=== PATIENT | male | born 1940 | race Caucasian/White ===

== ENCOUNTER 2018-08-18 02:27 | Emergency (ER) | payer MEDICAID, MEDICARE ==
[2018-08-18] MEDS ORDERED: Sodium Chloride 0.9% 10 ML Syringe FLUSH PRN (02:29)
[2018-08-18] MEDS ORDERED: Ondansetron 4 MG/2 ML SDV IVPUSH ONE (02:41)
[2018-08-18] MEDS ORDERED: Morphine 4 MG/ML Syringe IVPUSH ONE (02:41)
--- NOTE | 2018-08-18 02:41 | EDM.PDOC ---
ED HPI GENERAL MEDICAL PROBLEM - General Chief Complaint: Chest Pain Stated Complaint: chest pain Time Seen by Provider: 08/18/18 02:27 Source of Information: Reports: Patient, EMS, [facility] Records History Limitations: Reports: Other (dementia) - History of Present Illness INITIAL COMMENTS - FREE TEXT/NARRATIVE: 78 YO WM presents to ER from [place] with severe epigastric pain which began at approximately 10pm last night. Pt was given nitro for pain with no relief. Pt reports pain is worse with movement. Pt reports feeling more comfortable from laying on his right side and has more pain sitting up or lying on his back. Pt denies nausea/vomiting, no shortness of breath, no diaphoresis or dizziness. Pt reports having a cardiac cath many years ago without evidence of CAD. Pt denies any back pain or radiating chest pain. Onset Date: 08/17/18 Onset Time: 22:00 Location: Reports: Chest Quality: Reports: Ache Severity: Mild Improves with: Reports: None Worsens with: Reports: None Associated Symptoms: Reports: Chest Pain Treatments [facility]: Reports: Nitroglycerin - Related Data Allergies Allergy/AdvReac Type Severity Reaction Status Date / Time adenosine Allergy Cannot Verified 05/30/18 13:12 Remember clindamycin Allergy Cannot Verified 05/30/18 13:12 Remember gluten Allergy Stomach Verified 04/16/18 08:53 Upset lisinopril Allergy Cough Verified 05/30/18 13:12 Home Meds: Home Meds Isosorbide Mononitrate [Imdur] 30 mg PO DAILY 08/19/15 [History] Nitroglycerin [Nitrostat] 0.4 mg PO ASDIRECTED PRN 08/19/15 [History] Carvedilol 6.25 mg PO BIDMEALS 04/16/18 [History] Donepezil [Aricept] 5 mg PO BEDTIME 04/16/18 [History] Escitalopram [Lexapro] 10 mg PO DAILY 04/16/18 [History] Esomeprazole [NexIUM] 20 mg PO ACBREAKFAST 04/16/18 [History] Hydrocodone/Acetaminophen [Hydrocodon-Acetaminophen 5-325] 5 - 325 mg PO Q4HR PRN 04/16/18 [History] Memantine HCl [Namenda] 5 mg PO BID 04/16/18 [History] Polyethylene Glycol 3350 [Miralax] 17 gr PO BEDTIME 04/16/18 [History] Tamsulosin [Flomax] 0.4 mg PO DAILY 04/16/18 [History] amLODIPine Besylate [Amlodipine Besylate] 5 mg PO DAILY 04/16/18 [History] Polyethylene Glycol 3350 [MiraLAX] 17 gram PO DAILY 05/30/18 [History] Past Medical History HEENT History: Reports: Impaired Vision Other HEENT History: wears glasses Cardiovascular History: Reports: High Cholesterol, Hypertension Respiratory History: Reports: None Gastrointestinal History: Reports: Chronic Constipation, GERD Other Gastrointestinal History: diverticulitis Genitourinary History: Reports: BPH Other Genitourinary History: CKD Other Neuro History: memory loss Psychiatric History: Reports: Depression Endocrine/Metabolic History: Reports: None Hematologic History: Reports: None Immunologic History: Reports: None Oncologic (Cancer) History: Reports: None Dermatologic History: Reports: None - Past Surgical History Head Surgeries/Procedures: Reports: None HEENT Surgical History: Reports: Tonsillectomy GI Surgical History: Reports: Hernia Repair/Other Social & Family History - Family History Family Medical History: Noncontributory - Caffeine Use Caffeine Use: Reports: None ED ROS GENERAL - Review of Systems Review Of Systems: See Below Constitutional: Reports: No Symptoms HEENT: Reports: No Symptoms Respiratory: Reports: No Symptoms Cardiovascular: Reports: Chest Pain Endocrine: Reports: No Symptoms GI/Abdominal: Reports: No Symptoms : Reports: No Symptoms Musculoskeletal: Reports: No Symptoms Skin: Reports: No Symptoms Neurological: Reports: No Symptoms Psychiatric: Reports: No Symptoms Hematologic/Lymphatic: Reports: No Symptoms Immunologic: Reports: No Symptoms ED EXAM, GENERAL - Physical Exam Exam: See Below Exam Limited By: No Limitations General Appearance: Alert, WD/WN, Mild Distress Eye Exam: Bilateral Eye: PERRL Nose: Normal Inspection, Normal Mucosa, No Blood Throat/Mouth: Normal Inspection, Normal Lips, Normal Teeth, Normal Gums, Normal Oropharynx, Normal Voice, No Airway Compromise Head: Atraumatic, Normocephalic Neck: Normal Inspection, Supple, Non-Tender, Full Range of Motion Respiratory/Chest: No Respiratory Distress, Lungs Clear, Normal Breath Sounds, No Accessory Muscle Use, Chest Non-Tender Cardiovascular: Normal Peripheral Pulses, Regular Rate, Rhythm, No Edema, No Gallop, No JVD, No Murmur, No Rub GI/Abdominal: Normal Bowel Sounds, Soft, Non-Tender, No Organomegaly, No Distention, No Abnormal Bruit, No Mass Back Exam: Normal Inspection, Full Range of Motion, NT Extremities: Normal Inspection, Normal Range of Motion, Non-Tender, Normal Capillary Refill, No Pedal Edema Neurological: Alert, Oriented, CN II-XII Intact, Normal Cognition, Normal Gait, Normal Reflexes, No Motor/Sensory Deficits Psychiatric: Normal Affect, Normal Mood Skin Exam: Warm, Dry, Intact, Normal Color, No Rash Lymphatic: No Adenopathy EKG INTERPRETATION EKG Date: 08/18/18 Time: 02:28 Rhythm: NSR Rate (Beats/Min): 64 [place]: Normal P-Wave: Present QRS: Normal ST-T: Normal QT: Normal Comparison: NA - No Prior EKG Course - Vital Signs Last Recorded V/S: Last Vital Signs Temp 36.6 C 08/18/18 02:40 Pulse 64 08/18/18 02:40 Resp 20 08/18/18 02:40 BP 147/58 H 08/18/18 02:40 Pulse Ox 94 L 08/18/18 02:40 - Orders/Labs/Meds Orders: Active Orders 24 hr Category Date Time Status EKG Documentation Completion [RC] ASDIRECTED Care 08/18/18 02:30 Active Peripheral IV Care [RC] . DIRECTED Care 08/18/18 02:30 Active Abdomen Pelvis w Cont [CT] Stat Exams 08/18/18 04:10 Taken Chest 1V Frontal [CR] Stat Exams 08/18/18 02:29 Taken Chest w Cont [CT] Stat Exams 08/18/18 03:39 Taken Sodium Chloride 0.9% [Saline Flush] Med 08/18/18 02:29 Active 10 ml FLUSH Q8HR PRN Peripheral IV Insertion Adult [OM.PC] Routine Oth 08/18/18 02:29 Ordered EKG 12 Lead [EK] Routine Ther 08/18/18 02:29 Ordered Medication Orders Sodium Chloride (Saline Flush) 10 ml FLUSH Q8HR PRN PRN Reason: keep vein open Labs: Laboratory Tests 08/18/18 08/18/18 08/18/18 Range/Units 02:40 02:40 02:40 WBC 6.75 (5.00-10.00) 10^3/uL RBC 4.10 L (4.50-6.00) 10^6/uL Hgb 13.0 (13.0-17.0) g/dL Hct 37.1 L (40.0-52.0) % MCV 90.5 (82.0-92.0) fL MCH 31.7 H (27.0-31.0) pg MCHC 35.0 (32.0-36.0) g/dL RDW 13.4 (11.5-14.5) % Plt Count 147 L (150-400) 10^3/uL MPV 9.0 (7.4-10.4) fL Immature Gran % (Auto) 0.1 (0.0-5.0) % Neut % (Auto) 49.3 L (50.0-70.0) % Lymph % (Auto) 41.8 H (20.0-40.0) % [place] % (Auto) 4.9 (2.0-8.0) % Eos % (Auto) 3.6 H (1.0-3.0) % Baso % (Auto) 0.3 (0.0-1.0) % Immature Gran # (Auto) 0.01 (0.00-0.50) 10^3/uL Neut # (Auto) 3.33 (2.50-7.00) 10^3/uL Lymph # (Auto) 2.82 (1.00-4.00) 10^3/uL [place]ley # (Auto) 0.33 (0.10-0.80) 10^3/uL Eos # (Auto) 0.24 (0.10-0.30) 10^3/uL Baso # (Auto) 0.02 (0.00-0.10) 10^3/uL Atypical Lymphocytes Occasional Smudge Cells Occasional Sodium 140 (136-145) mmol/L Potassium 3.8 (3.3-5.3) mmol/L Chloride 106 (98-115) mmol/L Carbon Dioxide 24.2 (21.0-32.0) mmol/L Anion Gap 13.6 (5-15) mmol/L BUN 26 H (6-25) mg/dL Creatinine 0.82 (0.51-1.17) mg/dL Est Cr Clr Drug Dosing TNP Estimated GFR (MDRD) > 60 mL/min Glucose 121 H (75 - 99) mg/dL Calcium 8.1 L (8.7-10.3) mg/dL Total Bilirubin 0.4 (0.2-1.0) mg/dL AST 14 L (15-37) U/L ALT 21 (12-78) U/L Alkaline Phosphatase 63 (46-116) IU/L Creatine Kinase 94 (26-276) U/L CK-MB (CK-2) 1.50 (0.00-4.30) ng/mL Troponin I < 0.04 (0.00-0.070) ng/mL Total Protein 6.3 L (6.4-8.2) g/dL Albumin 3.30 (3.00-4.80) g/dL Lipase 226 (73-393) U/L Specimen Type Urinvoid Urine Color Yellow (YELLOW) Urine Appearance Clear (CLEAR) Urine pH 5.5 (5.0-9.0) Ur Specific [place] 1.020 (1.005-1.030) Urine Protein Negative (NEGATIVE) mg/dL Urine Glucose (UA) Negative (NEGATIVE) mg/dL Urine Ketones Negative (NEGATIVE) mg/dL Urine Occult Blood Negative (NEGATIVE) Urine Nitrite Negative (NEGATIVE) Urine Bilirubin Negative (NEGATIVE) Urine Urobilinogen 0.2 (0.2-1.0) E.U./dL Ur Leukocyte Esterase Negative (NEGATIVE) Urine RBC 0-5 (0-5) /HPF Urine WBC 0-5 (0-5) /HPF Urine Bacteria Occasional (NONE TO FEW) /HPF Urine Mucus Many H (NEGATIVE) /LPF Meds: Medications Generic Name Dose Route Start Last Admin Trade Name Freq PRN Reason Stop Dose Admin Sodium Chloride 10 ml 08/18/18 02:29 Saline Flush FLUSH Q8HR PRN keep vein open Discontinued Medications Generic Name Dose Route Start Last Admin Trade Name Freq PRN Reason Stop Dose Admin Al Hydroxide/Mg Hydroxide 45 ml 08/18/18 03:27 08/18/18 03:34 Gi Cocktail PO 08/18/18 03:28 45 ml ONETIME ONE Administration Sodium Chloride 50 mls @ 2.5 mls/sec 08/18/18 04:41 Normal Saline IV 08/18/18 04:42 ASDIRECTED ONE Iopamidol 100 ml 08/18/18 04:41 Isovue-370 (76%) IV 08/18/18 04:42 ONETIME ONE Morphine Sulfate 4 mg 08/18/18 02:41 08/18/18 03:02 Morphine IVPUSH 08/18/18 02:42 4 mg ONETIME ONE Administration Ondansetron HCl 4 mg 08/18/18 02:41 08/18/18 02:58 Zofran IVPUSH 08/18/18 02:42 4 mg ONETIME ONE Administration - Radiology Interpretation Free Text/Narrative:: CXR- NAD CT abd/pelvis- acute cholecystitis CT Chest- NAD Departure - Departure Time of Disposition: 03:29 Disposition: DC/Tfer to Acute Hospital 02 Reason for Transfer *Q: Other Condition: Fair Clinical Impression: Nonspecific chest pain, Cholecystitis Forms: ED Department Discharge, Interfacility Transfer EMTALA - My Orders Last 24 Hours: My Active Orders 08/18/18 02:29 Chest 1V Frontal [CR] Stat Sodium Chloride 0.9% [Saline Flush] 10 ml FLUSH Q8HR PRN Peripheral IV Insertion Adult [OM.PC] Routine EKG 12 Lead [EK] Routine 08/18/18 02:30 EKG Documentation Completion [RC] ASDIRECTED Peripheral IV Care [RC] . DIRECTED 08/18/18 03:39 Chest w Cont [CT] Stat 08/18/18 04:10 Abdomen Pelvis w Cont [CT] Stat - Assessment/Plan Last 24 Hours: My Active Orders 08/18/18 02:29 Chest 1V Frontal [CR] Stat Sodium Chloride 0.9% [Saline Flush] 10 ml FLUSH Q8HR PRN Peripheral IV Insertion Adult [OM.PC] Routine EKG 12 Lead [EK] Routine 08/18/18 02:30 EKG Documentation Completion [RC] ASDIRECTED Peripheral IV Care [RC] . DIRECTED 08/18/18 03:39 Chest w Cont [CT] Stat 08/18/18 04:10 Abdomen Pelvis w Cont [CT] Stat Assessment:: 1. nonspecific chest pain 2. acute cholecystitis Plan: 1. Transfer to [facility] for Cholecystitis 2. Discussed with Dr Sheffield who accepted transfer 3. supportive care 4. IVF NS@150cc/hr 5. pain control
[2018-08-18 02:52] VITALS: BP 147/58
[2018-08-18 03:22] LABS: ANION GAP 13.6 mmol/L (5-15); CHLORIDE,CL 106 mmol/L (98-115); SODIUM,NA 140 mmol/L (136-145)
[2018-08-18] MEDS ORDERED: GI Cocktail 45 ML BOTTLE PO ONE (03:27)
[2018-08-18] MEDS ORDERED: Sodium Chloride 0.9% 50 ML IV ONE (04:41)
[2018-08-18] MEDS ORDERED: Iopamidol 755 Mg/ML 100 ML Bottle IV ONE (04:41)
[2018-08-18] MEDS ORDERED: HYDROmorphone 1 MG/ML Syringe IVPUSH ONE (05:42)
[2018-08-18] MEDS ORDERED: Sodium Chloride 0.9% 1,000 ML IV SCH (05:45)
[2018-08-18] MEDS ORDERED: HYDROmorphone 1 MG/ML Syringe ONE (07:45)
--- NOTE | 2018-08-18 09:31 | CT ---
[id number] CT/CT Chest W IV; [id number] CT/CT Abdomen Pelvis W IV EXAM: CT Chest W IV, CT Abdomen Pelvis W IV CLINICAL DATA: PAIN COMPARISON STUDY: None. FINDINGS: No pleural effusion, pneumothorax, or pulmonary contusion. No parenchymal airspace consolidation. No aortic dissection. Pericardial effusion. Negative for pulmonary embolus. No pneumomediastinum. No pericardial effusion. No lymphadenopathy. Abdomen and pelvis: Multiple simple appearing bilateral cortical cysts in both kidneys. Kidneys are otherwise unremarkable. Liver contains numerous scattered hypodensities diffusely throughout both lobes. Largest of these is in the right hepatic lobe and consistent with a hemangioma. Spleen, pancreas, adrenal glands are unremarkable. Gallbladder is decompressed but demonstrates a mild amount of reactive change in the pericystic fat. No radiographically evident stones identified. However, early changes of acute cholecystitis are possible. Extensive colonic diverticulosis most prominent in the descending and sigmoid segments. No evidence of acute diverticulitis. No colitis. No small bowel obstruction or inflammation. Appendix is normal. Urinary bladder is intact. Moderately enlarged prostate gland. No lymphadenopathy, free fluid, or pneumoperitoneum. Bones and soft tissues: Hemangioma in the S1 vertebral body. Mild to moderate changes of spondylosis elsewhere in the spine. Osteoarthritis of the bilateral femoroacetabular joints. Bones are diffusely demineralized. IMPRESSION: Possible early changes of acute cholecystitis. Otherwise, no acute findings in the chest, abdomen, or pelvis. Other findings are described above. Matthieu Russ MD 08/18/18 0846 Thank you for allowing us to participate in the care of your patient.
--- NOTE | 2018-08-18 09:31 | CR ---
[id number] RAD/RAD Chest PA or AP 1V EXAM: RAD Chest PA or AP 1V INDICATION: PAIN COMPARISON: None. DISCUSSION: Cardiomediastinal silhouette is normal in size and contour. No infiltrate, effusion, pneumothorax, or edema. IMPRESSION: No acute findings in the chest. Matthieu Russ MD 08/18/18 0833 Thank you for allowing us to participate in the care of your patient.
== END 2018-08-18 07:53 ==
LOC: KA.ED 02:27
DX: K81.0 Acute cholecystitis (principal); I12.9 Hypertensive chronic kidney disease with stage 1 through stage 4 chronic kidney disease, or unspecified chronic kidney disease; N18.9 Chronic kidney disease, unspecified; E78.00 Pure hypercholesterolemia, unspecified; F32.9 Major depressive disorder, single episode, unspecified; Z79.899 Other long term (current) drug therapy; Z91.018 Allergy to other foods; Z88.1 Allergy status to other antibiotic agents; Z88.8 Allergy status to other drugs, medicaments and biological substances
CPT/HCPCS: 36415; 71045; 71260; 74177; 80053; 81001; 82550; 82553; 83690; 84484; 85025; 93005; 96361; 96374; 96375; 99284; 99285-25; A9270-GY; J1170; J2270; J2405; J7030; J7050; Q9967